=== PATIENT | female | born 1995 | race Caucasian/White ===

== ENCOUNTER 2018-02-25 20:29 | Emergency (ER) | payer OTHER ==
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
[2018-02-25 21:37] VITALS: BP 115/62
== END 2018-02-25 21:35 | disposition home or self-care (01) ==
LOC: CED 20:29
DX: S63.502A Unspecified sprain of left wrist, initial encounter (principal); V18.0XXA Pedal cycle driver injured in noncollision transport accident in nontraffic accident, initial encounter; Y93.K1 Activity, walking an animal; Y92.480 Sidewalk as the place of occurrence of the external cause
CPT/HCPCS: 73110-PO; 73130-PO; L3908

== ENCOUNTER 2018-06-18 12:21 | Observation (INO) | payer OTHER ==
[2018-06-18] MEDS ORDERED: NS 1,000 ML IV ONE (13:03)
[2018-06-18] MEDS ORDERED: HYDROmorphONE/DILAUDID 2 MG/ML INJ IVP ONE (13:03)
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
[2018-06-18 15:15] LABS: PLATELET COUNT 228 10^3/uL (150-400)
[2018-06-18] MEDS ORDERED: HYDROmorphONE/DILAUDID 1 MG/ML INJ ONE (15:23)
[2018-06-18] MEDS ORDERED: HYDROmorphONE/DILAUDID 1 MG/ML INJ IVP PRN (15:25)
[2018-06-18] MEDS ORDERED: oxyCODONE IR 5 MG TAB PO PRN (17:38)
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
[2018-06-18] MEDS ORDERED: LACTULOSE 20 GM/30 ML UDCUP PO PRN (18:52)
[2018-06-18] MEDS ORDERED: ONDANSETRON DISINTEGRATING 4 MG TAB PO PRN (18:52)
[2018-06-18] MEDS ORDERED: BISACODYL 10 MG SUPP PR PRN (18:52)
[2018-06-18] MEDS ORDERED: MAGNESIUM HYDROXIDE 30 ML UDCUP PO PRN (18:52)
[2018-06-18] MEDS ORDERED: POLYETHYLENE GLYCOL 3350 17 GM PKT PO PRN (18:52)
[2018-06-18] MEDS: oxyCODONE IR 5 MG TAB PO PRN ×2 (19:09→23:06)
[2018-06-18] MEDS: SENNOSIDES/DOCUSATE SODIUM TAB PO SCH (20:57)
[2018-06-19] MEDS: oxyCODONE IR 5 MG TAB PO PRN ×3 (02:54→12:22)
--- NOTE | 2018-06-19 06:10 | SOAPPROG ---
CAR[facility] Progress Note Assessment/Plan: Assessment: Pelvic Fracture, Left Side Plan: Continue to treat this non-operatively Touch Down Weight Bearing LLE with the use of a walker She will meet with PT/OT today and be evaluated by case operator. She has mother and aunt support when discharged. Will discharge later today 06/19 if progressing well with PT/OT. Follow-up in 10 days at [facility]. 06/19/18 06:06 Subjective: Pain is present, but controlled with current oral pain meds. Denies any SOB, COB , or N/V Objective: Vital Signs Temp Pulse Resp BP Pulse Ox 36.8 C 79 16 123/64 H 100 06/19/18 02:57 06/19/18 02:57 06/19/18 02:57 06/19/18 02:57 06/19/18 02:57 Laboratory Results 06/18/18 14:30 06/18/18 14:30 06/18/18 06/19/18 06/20/18 05:59 05:59 05:59 Intake Total 2000 Output Total 2700 Balance -700 PHYSICAL EXAM LLE Moved foot and ankle well. No pain to leg roll. Weak leg raise with discomfort. Distal neurovasculature intact ICD10 Worksheet Patient Problems: Problems Problem Status Onset Closed left hip fracture Acute
--- NOTE | 2018-06-19 06:18 | PDIAF ---
- Diagnosis Diagnosis: Pelvic Fracture, Left Side - Medication Management Discharge Medications: electronically signed and located in the Home Medication List. - Orders Services needed: Home Care, Physical Therapy, Occupational Therapy (Patient will benefit from home PT/OT for the next 5 days and possible home health aid if needed.) Home Care Face to Face: I certify that this patient was under my care and that I had the required [id number] encounter meeting the encounter requirements on the discharge day. My findings support the fact that the patient is homebound as defined in Home Care Face to Face Continued: CMS Chapter 7 Medicare Benefits Manual 30.1.1 , The condition of the patient is such that there exists a normal inability to leave home and consequently, leaving home would require a considerable and taxing effort. Diet Recommendation: no restrictions on diet Additional Instructions: Touch Down Weight Bearing LLE with use of walker Oral pain medications to take as needed for severe pain. Follow-up in 10 days at [facility]. Please call clinic to confirm date/time of appointment Please call clinic with any questions or concerns. - Follow Up Care Current Providers and Referrals: Patient,NotPresent [Unknown] - As per Instructions
[2018-06-19] MEDS: SENNOSIDES/DOCUSATE SODIUM TAB PO SCH (07:10)
[2018-06-19 11:08] VITALS: BP 102/58
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
--- NOTE | 2018-06-19 16:45 | ASDISCHSUM ---
Discharge Information Plan Status:Home with Home Health Medically Cleared to Leave: Discharge Date:06/19/2018 02:56 PM CM D/C Disposition: ADT D/C Disposition:Home Health Service Projected Discharge Date:06/19/2018 11:00 AM Transportation at D/C: Discharge Delay Reason: Follow-Up Date:06/19/2018 11:00 AM Discharge Slot: Final Diagnosis: Placement Information Referral Type:*Home Health Care Services Referral ID:[id number] Provider Name:[facility] Address 1:[address] Address 2: City:[place] Selection Factors: State:[place] Patient Contact Information Contact Name:YOBANY Relationship:Aunt Address:[address] [facility] Work Phone: City:[place] Alternate Phone: State/Zip Code:[place] [address] Email: Financial Information Financial Class:HMO and PPO Plans Primary Plan Desc:[facility] [employer] Primary Plan Number:[id number] Secondary Plan Desc: Secondary Plan Number: Assessment Information [facility] CM Progress Note CM Note CM Note Notes: Pt has non-operative hip fx after fall snowboarding. Pt medically stable for d/c with [facility] PT/OT. Orders to be obtained via [employer]. Pt will d/c to aunt [place] [address] [address] , [facility] updated. Pt has a lot of supportive family. Date Signed: 06/19/2018 12:16 PM Electronically Signed By:JOSEPH Garrido Intervention Information
== END 2018-06-19 14:56 | disposition home health service (06) ==
LOC: EDUNIT# → F3N 16:26
PROVIDERS: ADMIT Orthopaedic Surgery Sports Medicine; ATTEND Orthopaedic Surgery Sports Medicine
DX: S32.810A Multiple fractures of pelvis with stable disruption of pelvic ring, initial encounter for closed fracture (principal); S32.10XA Unspecified fracture of sacrum, initial encounter for closed fracture; V00.311A Fall from snowboard, initial encounter; Y93.23 Activity, snow (alpine) (downhill) skiing, snowboarding, sledding, tobogganing and snow tubing; Y92.838 Other recreation area as the place of occurrence of the external cause; E86.0 Dehydration
CPT/HCPCS: 72170; 72192; 73502; 96374; 96376; 97161; 97165; 97530; 97535; 99285; G0378; J1170